=== PATIENT | female | born 1940 | race Caucasian/White ===

== ENCOUNTER 2022-05-07 20:49 | Inpatient (IN) | payer MEDICARE, OTHER ==
[~2022-05-07] VITALS: Ht 167.6 cm; Wt 71.2 kg
--- NOTE | 2022-05-07 20:50 | NUR ---
Patient A/Ox3. Daughter with patient. NAD noted. Dr. Batista with pateint. MSE in progress.
--- NOTE | 2022-05-07 20:50 | NUR ---
Nelson prado in EDM - 05/07/22 at 2054 by LALI Patient A/Ox3. Daughter with patient. NAD noted. Dr. Batista with
[2022-05-07] MEDS ORDERED: NITROGLYCERIN OINT 1 GM PACKET TP ONE ×2 (21:00→21:02)
[2022-05-07] MEDS ORDERED: METOPROLOL TARTRATE 5 MG/5 ML VIAL IVP ONE ×2 (21:00→21:01)
[2022-05-07] MEDS ORDERED: MAGNESIUM SULFATE 2 GM in IV DEXTROSE 5% 100 ML IV ONE (21:00)
[2022-05-07] MEDS ORDERED: MAGNESIUM SULFATE 1 GM/2 ML VIAL ONE (21:02)
[2022-05-07] MEDS ORDERED: ROSU5TAB PO (21:08)
[2022-05-07] MEDS ORDERED: ASPI81TA31 PO (21:08)
[2022-05-07] MEDS ORDERED: VALS40TA4 PO (21:08)
[2022-05-07 21:14] LABS: HEMATOCRIT 40.8 % (31.2-41.9); MEAN CORPUSCULAR HEMOGLOBIN 30.5 uug (24.7-32.8); PLATELET COUNT (AUTO) 170 K/uL (179-408)
[2022-05-07 21:21] LABS: CARBON DIOXIDE 27 mmol/L (21-32); CHLORIDE 105 mmol/L (98-107); CREATININE 1.2 mg/dL (0.6-1.3); GLUCOSE 160 mg/dL (74-106); POTASSIUM 2.9 mmol/L (3.5-5.1); UREA NITROGEN, BLOOD 24 mg/dL (7-18)
[2022-05-07 21:33] LABS: ALANINE AMINOTRANSFERASE 21 U/L (14-59); ALKALINE PHOSPHATASE 59 U/L (50-136); ASPARTATE AMINOTRANSFERASE 9 U/L (15-37); BILIRUBIN,DIRECT 0.1 mg/dL (0.0-0.2); BILIRUBIN,TOTAL 0.4 mg/dL (0.2-1.0); TOTAL PROTEIN, SERUM 6.9 g/dL (6.4-8.2)
[2022-05-07] MEDS ORDERED: VALS160T2 PO (21:34)
[2022-05-07] MEDS ORDERED: NITR0.4T SL (21:34)
[2022-05-07] MEDS ORDERED: ROSU20TA2 PO (21:34)
[2022-05-07] MEDS ORDERED: POTASSIUM BICARBONATE/CIT AC 25 MEQ TABLET.EFF PO ONE (22:00)
--- NOTE | 2022-05-07 22:00 | NUR ---
Called [facility] for panel call. 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
[2022-05-07] MEDS ORDERED: OXYCODONE/APAP 5-325 MG TABLET ONE (22:09)
[2022-05-07] MEDS ORDERED: POTASSIUM BICARBONATE/CIT AC 25 MEQ TABLET.EFF ONE (22:09)
--- NOTE | 2022-05-07 22:29 | NUR ---
Called 3rd fl for TELE bed, was informed that they're over ratio. Will confirm with [facility].
[2022-05-07] MEDS ORDERED: OXYCODONE/APAP 5-325 MG TABLET PO ONE (22:30)
[2022-05-07] MEDS ORDERED: ENOXAPARIN SODIUM 40 MG/0.4 ML DISP.SYRIN SQ SCH (22:45)
[2022-05-07] MEDS ORDERED: ACETAMINOPHEN 325 MG TABLET PO PRN (22:45)
[2022-05-07] MEDS ORDERED: MORPHINE SULFATE 2 MG/1 ML DISP.SYRIN IV PRN (22:45)
[2022-05-07] MEDS ORDERED: NITROGLYCERIN 0.4 MG/TAB BOTTLE SL PRN (22:45)
[2022-05-07] MEDS ORDERED: MAGNESIUM HYDROXIDE 30 ML LIQUID UDC PO PRN (22:45)
[2022-05-07] MEDS ORDERED: ONDANSETRON 4 MG/2 ML VIAL IV PRN (22:45)
[2022-05-07] MEDS ORDERED: REMEDY ESSENTIAL ZINC PASTE 113 GM TP PRN (22:45)
--- NOTE | 2022-05-07 23:41 | NUR ---
Patient ambulatory with a steady gait. Better to have some walk with patient just to observe/monitor.
[2022-05-08] MEDS ORDERED: POTASSIUM BICARBONATE/CIT AC 25 MEQ TABLET.EFF ONE (01:05)
[2022-05-08] MEDS ORDERED: ENOXAPARIN SODIUM 40 MG/0.4 ML DISP.SYRIN SQ ONE (01:05)
[2022-05-08] MEDS ORDERED: POTASSIUM BICARBONATE/CIT AC 25 MEQ TABLET.EFF PO ONE ×2 (01:15→07:15)
[2022-05-08] MEDS ORDERED: diphenhydrAMINE 25 MG CAP PO PRN (03:30)
[2022-05-08 05:23] LABS: CARBON DIOXIDE 30 mmol/L (21-32); CHLORIDE 107 mmol/L (98-107); CHOLESTEROL 134 mg/dL (<200); GLUCOSE 78 mg/dL (74-106); PHOSPHOROUS 3.3 mg/dL (2.5-4.9); POTASSIUM 3.8 mmol/L (3.5-5.1); TRIGLYCERIDES 140 MG/DL (30-150); UREA NITROGEN, BLOOD 22 mg/dL (7-18)
[2022-05-08] MEDS ORDERED: MAG HYDROX/AL HYDROX/SIMETH 30 ML LIQUID UDC ONE (05:26)
[2022-05-08 05:30] LABS: THYROID STIMULATING HORMONE 4.021 mIU/mL (0.358-3.740)
[2022-05-08] MEDS ORDERED: MAG HYDROX/AL HYDROX/SIMETH 30 ML LIQUID UDC PO PRN (05:30)
[2022-05-08] MEDS ORDERED: ONDANSETRON 4 MG/2 ML VIAL ONE (05:35)
--- NOTE | 2022-05-08 05:40 | NUR ---
3RD [facility] called and gave patient rm [id number]. She will be transfered after change of shift.
[2022-05-08 05:47] LABS: HDL CHOLESTEROL 55 mg/dL (40-60); MAGNESIUM 2.5 mg/dL (1.8-2.4)
[2022-05-08 05:53] LABS: HEMATOCRIT 39.2 % (31.2-41.9); MEAN CORPUSCULAR HEMOGLOBIN 30.3 uug (24.7-32.8); MEAN CORPUSCULAR VOLUME 89.7 fL (75.5-95.3); PLATELET COUNT (AUTO) 176 K/uL (179-408)
[2022-05-08] MEDS ORDERED: PANTOPRAZOLE SODIUM 40 MG TABLET.DR PO SCH (07:00)
[2022-05-08] MEDS ORDERED: PANTOPRAZOLE SODIUM 40 MG VIAL IV STA (07:01)
--- NOTE | 2022-05-08 07:02 | NUR ---
Change of shift report given to Rui LOREDO.
[2022-05-08] MEDS ORDERED: FUROSEMIDE 20 MG/2 ML VIAL IV ONE (07:15)
--- NOTE | 2022-05-08 07:40 | NUR ---
Called report to GERTRUDE [place].
--- NOTE | 2022-05-08 07:50 | NUR ---
RECEIVED REPORT FROM TRAVEL REGISTERED NURSE NICU. PT CAME IN FOR CHEST PAIN. PT AMBULATORY. SATURATION AT 95% ON ROOM AIR. VITAL WNL. AFEBRILE. NO COMPLAIN OF PAIN. NO SOB. PT IS GOING TO BE ADMITTED TO TELE ON RM 309. DR. RODRIGUEZ WILL F/U CARE.
--- NOTE | 2022-05-08 07:51 | NUR ---
Pt desaturated to 90%, so placed the pt on O2 via NC at 2 lpm. Sats increased to 96+%
[2022-05-08 08:21] VITALS: BP 134/61
[2022-05-08] MEDS ORDERED: VALSARTAN 160 MG TABLET PO SCH (09:00)
[2022-05-08] MEDS ORDERED: ASPIRIN 81 MG TAB.CHEW PO SCH (09:00)
[2022-05-08] MEDS ORDERED: Medication Not On Formulary EA (Rosuvastatin Calcium (Crestor) 20 MG) PO SCH (09:00)
[2022-05-08] MEDS ORDERED: APIXABAN 5 MG TABLET PO SCH (11:00)
--- NOTE | 2022-05-08 11:00 | NUR ---
TROPONIN TRENDING DOWN. CARDIO DR SEEN PT AND CLEARED PT FOR DISCHARGE.
[2022-05-08 11:59] VITALS: BP 127/67
--- NOTE | 2022-05-08 14:00 | NUR ---
PT IS DISCHARGE. PT WILL GO HOME WITH HER SPOUSE. ALL BELONGINGS ACCOUNTED FOR. PT IS HEMODYNAMICALLY STABLE. VITALS SIGN WNL. PT WILL GO HOME VIA THEIR PRIVATE CAR.
[2022-05-08] MEDS ORDERED: ATORVASTATIN 40 MG TABLET PO SCH (21:00)
== END 2022-05-08 14:00 | disposition home or self-care (01) | DRG 281 ==
LOC: ER 20:49 → TRANSITION 05-08 01:30 → TELE3 05-08 05:52
DX: I48.0 Paroxysmal atrial fibrillation (principal); I21.A1 Myocardial infarction type 2; D68.69 Other thrombophilia; E87.6 Hypokalemia; I10 Essential (primary) hypertension; E78.5 Hyperlipidemia, unspecified; I25.2 Old myocardial infarction; Z79.01 Long term (current) use of anticoagulants; Z79.82 Long term (current) use of aspirin; Z95.5 Presence of coronary angioplasty implant and graft; I25.10 Atherosclerotic heart disease of native coronary artery without angina pectoris; Z20.822 Contact with and (suspected) exposure to COVID-19
CPT/HCPCS: 36415; 71045; 83605; 83735; 84100; 84443; 84484; 85025; 85730; 93005; G0378; J1650; J2405; J3475; J3490